=== PATIENT | female | born 1990 | race Caucasian/White ===

== ENCOUNTER 2022-03-18 20:49 | Emergency (ER) | payer BC, OTHER ==
[2022-03-18] MEDS ORDERED: Misoprostol 100 MCG Tab PO ONE (22:56)
[2022-03-18] MEDS ORDERED: Misoprostol 200 MCG Tab PO SCH (23:00)
== END 2022-03-18 23:18 | disposition home or self-care (01) ==
LOC: JD.ED 20:49 → SUPCPDRO 20:49 → JD.ED 23:18
DX: O03.9 Complete or unspecified spontaneous abortion without complication (principal)
CPT/HCPCS: 36415; 76817; 81001; 84702; 85025; 86900; 86901; 99284; A9270

== ENCOUNTER 2023-03-05 12:07 | Inpatient (IN) | payer SELFPAY ==
[~2023-03-05 12:07] MED LIST: Ropivacaine 0.2% PF 2 MG/ML 20 ML SDV ONE
[2023-03-05 12:43] LABS: BASOPHILS ABSOLUTE AUTO 0.02 K/mm3 (0.01-0.08); BASOPHILS PERCENT AUTO 0.2 % (0.1-1.2); EOSINOPHILS PERCENT AUTO 0.9 (0.7-5.8); HEMATOCRIT 40.9 % (34.1-44.9); HEMOGLOBIN 13.3 gm/dl (11.2-15.7); IMMATURE GRAN ABSOLUTE AUTO 0.03 K/mm3 (0.00-0.10); IMMATURE GRAN PERCENT AUTO 0.3 % (<=1.0); LYMPHOCYTES ABSOLUTE AUTO 2.12 K/mm3 (1.18-3.74); MEAN CORPUSCULAR HEMOGLOBIN 28.7 pg (25.6-32.2); MEAN CORPUSCULAR HGB CONC 32.5 g/dl (32.2-35.5); MEAN CORPUSCULAR VOLUME 88.1 fl (79.4-94.8); MONOCYTES ABSOLUTE AUTO 0.82 K/mm3 (0.24-0.36); MONOCYTES PERCENT AUTO 7.4 % (4.7-12.5); NEUTROPHILS ABSOLUTE AUTO 8.06 K/mm3 (1.56-6.13); NEUTROPHILS PERCENT AUTO 72.2 % (34.0-71.1); PLATELET COUNT,PLT 139 K/mm3 (182-369); RED BLOOD CELL COUNT 4.64 M/mm3 (3.98-5.22); WHITE BLOOD CELL COUNT,WBC 11.15 K/mm3 (3.98-10.04)
[2023-03-05] MEDS ORDERED: Nalbuphine 10 MG/0.5 ML Syringe IVPUSH PRN (12:49)
[2023-03-05] MEDS ORDERED: Sodium Chloride 0.9% 10 ML Syringe FLUSH PRN (12:49)
[2023-03-05] MEDS ORDERED: Ondansetron 4 MG/2 ML SDV IVPUSH PRN (12:49)
[2023-03-05] MEDS ORDERED: Acetaminophen 325 MG Tab PO PRN (12:49)
[2023-03-05] MEDS ORDERED: Oxytocin/Lactated Ringers 10 UNIT/1,000 ML BAG IV SCH ×2 (13:00)
[2023-03-05 13:06] LABS: CREATININE 0.8 mg/dL (0.55-1.02); EST CRCL DRUG DOSING (CG) 95.38 mL/min
[2023-03-05 13:19] LABS: SLIDE REVIEW ABNORMAL SMEAR
[2023-03-05 15:09] LABS: CREATININE,URINE RAND 41.3 mg/dL (30.0-125.0)
[2023-03-05 15:11] LABS: PROTEIN,URINE RANDOM < 6.0 mg/dL (0.0-11.8)
[2023-03-05 15:13] LABS: URIC ACID 5.7 mg/dL (2.6-6.0)
[2023-03-05] MEDS: Lactated Ringers 1,000 ML IV SCH ×2 (15:42→22:03)
[2023-03-05] MEDS ORDERED: Bupivacaine/fentaNYL/NS 100 ML Bag EPIDUR PRN (17:14)
[2023-03-05] MEDS ORDERED: diphenhydrAMINE 50 MG/ML SDV IVPUSH PRN (17:14)
[2023-03-05] MEDS ORDERED: ePHEDrine 50 MG/ML SDV IVPUSH PRN (17:14)
[2023-03-05] MEDS ORDERED: fentaNYL 100 MCG/2 ML SDV EPIDUR PRN (17:14)
[2023-03-05] MEDS ORDERED: Sodium Chloride 0.9% 10 ML Syringe FLUSH SCH (21:00)
[2023-03-05] MEDS ORDERED: Phenylephrine 1% 10 MG/ML SDV IM ONE (22:37)
[2023-03-05] MEDS ORDERED: Metoclopramide 10 MG/2 ML SDV IVPUSH ONE (22:41)
[2023-03-05] MEDS ORDERED: Azithromycin 500 MG in Sodium Chloride 0.9% 250 ML IV ONE (22:41)
[2023-03-05] MEDS ORDERED: ceFAZolin 2 GM in Sodium Chloride 0.9% 100 ML IV ONE (22:41)
[2023-03-05] MEDS ORDERED: Citric Acid/Sodium Citrate Solution 30 ML Cup PO ONE (22:41)
[2023-03-05] MEDS ORDERED: Oxytocin 10 Units/1 ML SDV ONE (23:14)
[2023-03-05] MEDS ORDERED: ceFAZolin 2 GM Vial ONE (23:14)
[2023-03-05] MEDS ORDERED: Lidocaine 2% with EPINEPHrine 1:200,000 20 ML SDV ONE (23:15)
[2023-03-05] MEDS ORDERED: Phenylephrine 1% 10 MG/ML SDV ONE (23:22)
[2023-03-05] MEDS ORDERED: Ondansetron 4 MG/2 ML SDV ONE (23:22)
[2023-03-05] MEDS ORDERED: Ketorolac 30 MG/ML SDV ONE (23:32)
[2023-03-05] MEDS ORDERED: Morphine PF 1 MG/ML Amp ONE (23:34)
[2023-03-06] MEDS ORDERED: Naloxone 0.4 MG/ML SDV IVPUSH PRN (01:44)
[2023-03-06] MEDS ORDERED: Acetaminophen/oxyCODONE 325-5 MG Tab PO PRN (01:44)
[2023-03-06] MEDS ORDERED: Dextrose 5%-Lactated Ringers 1,000 ML IV SCH (01:44)
[2023-03-06] MEDS ORDERED: Ondansetron 4 MG/2 ML SDV IV PRN (01:44)
[2023-03-06] MEDS ORDERED: diphenhydrAMINE 50 MG/ML SDV IVPUSH PRN (01:44)
[2023-03-06] MEDS ORDERED: Ketorolac 30 MG/ML SDV IVPUSH SCH (06:15)
[2023-03-06] MEDS: Ketorolac 30 MG/ML SDV IVPUSH SCH ×3 (09:12→23:11)
[2023-03-06 20:41] LABS: HEMATOCRIT 31.6 % (34.1-44.9); MEAN CORPUSCULAR HEMOGLOBIN 29.1 pg (25.6-32.2); MEAN CORPUSCULAR HGB CONC 32.3 g/dl (32.2-35.5); MEAN CORPUSCULAR VOLUME 90.3 fl (79.4-94.8); MEAN PLATELET VOLUME 14.1 fl (9.4-12.3); PLATELET COUNT,PLT 117 K/mm3 (182-369); WHITE BLOOD CELL COUNT,WBC 12.58 K/mm3 (3.98-10.04)
[2023-03-06 20:59] LABS: HEMOGLOBIN 10.2 gm/dl (11.2-15.7)
[2023-03-07] MEDS: Ibuprofen 600 MG Tab PO PRN ×2 (04:50→19:32)
[2023-03-07] MEDS: Acetaminophen/oxyCODONE 325-5 MG Tab PO PRN ×4 (09:00→23:56)
[2023-03-08] MEDS: Ibuprofen 600 MG Tab PO PRN (04:52)
[2023-03-08] MEDS: Acetaminophen/oxyCODONE 325-5 MG Tab PO PRN (04:52)
== END 2023-03-08 13:30 | disposition home or self-care (01) | DRG 788 ==
LOC: JD.OB 12:07 → OBSVTOIN 23:26 → JD.OB 23:26
PROVIDERS: ADMIT Obstetrics & Gynecology; ATTEND Obstetrics & Gynecology
PROC: 10D00Z1 Extraction of Products of Conception, Low, Open Approach (ICD-10-PCS; principal; 2023-03-05)
PROC: 10H07YZ Insertion of Other Device into Products of Conception, Via Natural or Artificial Opening (ICD-10-PCS; 2023-03-05)
PROC: 10907ZC Drainage of Amniotic Fluid, Therapeutic from Products of Conception, Via Natural or Artificial Opening (ICD-10-PCS; 2023-03-05)
PROC: 3E033VJ Introduction of Other Hormone into Peripheral Vein, Percutaneous Approach (ICD-10-PCS; 2023-03-05)
DX: O13.4 Gestational [pregnancy-induced] hypertension without significant proteinuria, complicating childbirth (principal); O76 Abnormality in fetal heart rate and rhythm complicating labor and delivery; O61.0 Failed medical induction of labor; Z37.0 Single live birth; Z98.891 History of uterine scar from previous surgery; Z90.49 Acquired absence of other specified parts of digestive tract; Z3A.39 39 weeks gestation of pregnancy; Z98.890 Other specified postprocedural states
CPT/HCPCS: 01967; 36415; 51702; 59025; 82565; 82570; 83615; 84156; 84450; 84460; 84520; 84550; 85025; 85027; 86592; 86850; 86900; 86901; A9270-GY; J0690; J1885; J2274; J2370; J2405; J2590; J2795; J3490; J7120

== ENCOUNTER 2025-07-10 01:52 | Emergency (ER) | payer BC ==
[2025-07-10] MEDS ORDERED: Sodium Chloride 0.9% 10 ML Syringe FLUSH PRN (02:14)
[2025-07-10 02:39] LABS: BASOPHILS ABSOLUTE AUTO 0.1 K/mm3 (0.0-0.2); BASOPHILS PERCENT AUTO 0.8 % (0.0-1.0); EOSINOPHILS ABSOLUTE AUTO 0.2 K/mm3 (0.0-0.4); EOSINOPHILS PERCENT AUTO 2.5 % (0.0-6.0); IMMATURE GRAN ABSOLUTE AUTO 0.02 K/mm3 (0.00-0.05); IMMATURE GRAN PERCENT AUTO 0.2 % (0.0-0.4); LYMPHOCYTES ABSOLUTE AUTO 2.3 K/mm3 (1.0-4.8); LYMPHOCYTES PERCENT AUTO 26.1 % (24.0-44.0); MEAN PLATELET VOLUME 11.9 fl (9.4-12.3); MONOCYTES ABSOLUTE AUTO 0.5 K/mm3 (0.0-0.8); MONOCYTES PERCENT AUTO 5.2 % (0.0-8.0); NEUTROPHILS ABSOLUTE AUTO 5.7 K/mm3 (1.8-7.7); NEUTROPHILS PERCENT AUTO 65.2 % (41.0-71.0); NRBC ABSOLUTE 0.00 (0.00-0.02); NRBC PERCENT 0.0 % (0.0-0.2); PLATELET COUNT,PLT 231 K/mm3 (150-400); RED BLOOD CELL COUNT 4.35 M/mm3 (4.10-5.30); WHITE BLOOD CELL COUNT,WBC 8.71 K/mm3 (3.9-11.3)
[2025-07-10 03:03] LABS: A/G RATIO 1.1 (1-2); ASPARTATE AMNIOTRANSFERASE,AST 18 U/L (15-37); BILIRUBIN TOTAL 0.2 mg/dL (0.2-1.0); BLOOD UREA NITROGEN,BUN 10 mg/dL (7-18); CARBON DIOXIDE,CO2 26 mEq/L (21-32); CHLORIDE,CL 108 mEq/L (98-107); CREATININE 1.0 mg/dL (0.55-1.02); ESTIMATED GFR 76 mL/min (>60); ETHANOL BLOOD MEDICAL 0.12 gm% (0.00); GLUCOSE RANDOM 103 mg/dL (70-99); POTASSIUM,K 3.7 mEq/L (3.5-5.1); PROTEIN TOTAL,TP 7.2 g/dl (6.4-8.2); SODIUM,NA 144 mEq/L (136-145)
[2025-07-10 03:11] LABS: ALANINE AMINOTRANSFERASE,ALT 18 U/L (14-59)
[2025-07-10 03:23] LABS: APPEARANCE,URINE CLEAR (Clear); GLUCOSE,URINE NEGATIVE (Negative); OCCULT BLOOD,URINE NEGATIVE (Negative)
[2025-07-10 03:34] LABS: BUPRENORPHINE SCREEN,URINE NEGATIVE (CUTOFF=10); METHADONE SCREEN, URINE NEGATIVE (CUTOFF=200); METHAMPHETAMINES SCREEN, URINE NEGATIVE (CUTOFF=500); OXYCODONE SCREEN,URINE NEGATIVE (CUT0FF=100); THC SCREEN,URINE 20 NG/ML NEGATIVE (CUTOFF=50)
[2025-07-10 03:43] LABS: AMPHETAMINES SCREEN, URINE NEGATIVE (CUTOFF=500)
== END 2025-07-10 06:24 | disposition home or self-care (01) ==
LOC: JD.ED 01:52
DX: R45.851 Suicidal ideations (principal); F43.0 Acute stress reaction; Z90.49 Acquired absence of other specified parts of digestive tract; Z79.899 Other long term (current) drug therapy
CPT/HCPCS: 36415; 80053; 80306; 80307; 81003; 84703; 85025; 99285